=== PATIENT | male | born 1950 | race Caucasian/White ===

== ENCOUNTER → 2016-05-20 | Day surgery (SDC) | payer MEDICARE, OTHER ==
[~2016-05-20] VITALS: Ht 180.3 cm; Wt 117.9 kg
[~2016-05-20] MED LIST: ALBU2.5V13; ASPI-1035 PO; ATOR20TA PO; BENA20TA77 PO; CLOP75TA2 PO; FAMO20TA8 PO; FENTANYL CITRATE/PF 50MCG/ML 2ML VIAL ONE; FURO-152 PO; HEPARIN SODIUM 1,000 UNIT/1ML VIAL IV ONE; IOHEXOL-300 100 ML BOTTLE ONE; LIDOCAINE HCL 1% 20ML VIAL (Pyxis) INJ ONE; LISI-604 PO; METO25TA3 PO; METO25TA6 PO; MIDAZOLAM HCL 2 MG/2 ML VIAL ONE; NICARDIPINE 100MCG/ML 10ML VIAL (CATH LAB) IV ONE; NITR0.4T SL; NITROGLYCERIN 50MCG/ML 10ML VIAL (CATH LAB) IV ONE; SODIUM CHLORIDE 0.45% 1,000 ML IV ONE; TRIA1TAB94 PO; VIAG100 PO
== END | disposition home or self-care (01) ==
LOC: CCL 13:36
PROVIDERS: ATTEND Specialist
DX: I25.10 Atherosclerotic heart disease of native coronary artery without angina pectoris (principal); I21.3 ST elevation (STEMI) myocardial infarction of unspecified site; I10 Essential (primary) hypertension; E78.5 Hyperlipidemia, unspecified
CPT/HCPCS: 93458; C1769; C1893; J1644; J2250; J3010; J3490; Q9967

== ENCOUNTER 2019-04-12 08:42 | Day surgery (SDC) | payer MEDICARE, OTHER ==
[~2019-04-12] VITALS: Ht 177.8 cm; Wt 111.1 kg
[~2019-04-12 08:42] MED LIST changes: -ALBU2.5V13; -ASPI-1035 PO; +ASPI-1497 PO; -BENA20TA77 PO; +CLOP75TA15 PO; -CLOP75TA2 PO; -FENTANYL CITRATE/PF 50MCG/ML 2ML VIAL ONE; -FURO-152 PO; -HEPARIN SODIUM 1,000 UNIT/1ML VIAL IV ONE; -IOHEXOL-300 100 ML BOTTLE ONE; -LIDOCAINE HCL 1% 20ML VIAL (Pyxis) INJ ONE; -METO25TA6 PO; -MIDAZOLAM HCL 2 MG/2 ML VIAL ONE; -NICARDIPINE 100MCG/ML 10ML VIAL (CATH LAB) IV ONE; -NITROGLYCERIN 50MCG/ML 10ML VIAL (CATH LAB) IV ONE; -SODIUM CHLORIDE 0.45% 1,000 ML IV ONE
[2019-04-12] MEDS ORDERED: MIDAZOLAM HCL 2 MG/2 ML VIAL ONE (10:03)
[2019-04-12] MEDS ORDERED: LIDOCAINE HCL 1% 20ML VIAL (Pyxis) INJ ONE ×2 (10:04→10:38)
[2019-04-12] MEDS ORDERED: FENTANYL CITRATE/PF 50MCG/ML 2ML VIAL ONE ×2 (10:04→11:01)
[2019-04-12] MEDS ORDERED: HEPARIN 1,000 UNITS PREMIX 0 ML IV ONE (10:04)
[2019-04-12] MEDS ORDERED: IODIXANOL 320MG/ML 100 ML BOTTLE IV ONE (10:04)
[2019-04-12] MEDS ORDERED: NICARDIPINE 100MCG/ML 10ML VIAL (CATH LAB) IV ONE (15:57)
[2019-04-12] MEDS ORDERED: HEPARIN SODIUM 1,000 UNIT/1ML VIAL IV ONE (15:57)
[2019-04-12] MEDS ORDERED: NITROGLYCERIN 50MCG/ML 10ML VIAL (CATH LAB) IV ONE (15:57)
== END 2019-04-12 14:00 | disposition home or self-care (01) ==
LOC: CCL 08:42
PROVIDERS: ATTEND Specialist
DX: R07.9 Chest pain, unspecified (principal); I25.10 Atherosclerotic heart disease of native coronary artery without angina pectoris; I10 Essential (primary) hypertension; I25.2 Old myocardial infarction; J44.9 Chronic obstructive pulmonary disease, unspecified; E78.5 Hyperlipidemia, unspecified; N17.9 Acute kidney failure, unspecified; M48.061 Spinal stenosis, lumbar region without neurogenic claudication; E55.9 Vitamin D deficiency, unspecified; F17.210 Nicotine dependence, cigarettes, uncomplicated; Z79.82 Long term (current) use of aspirin; Z79.899 Other long term (current) drug therapy; Z95.5 Presence of coronary angioplasty implant and graft; Z82.49 Family history of ischemic heart disease and other diseases of the circulatory system
CPT/HCPCS: 93458; 99152; C1769; C1887; C1893; J1644; J2250; J3010; J3490; Q9967; G0500